=== PATIENT | female | born 1985 | race Caucasian/White ===

== ENCOUNTER 2019-09-21 10:52 | Emergency (ER) | payer BC ==
[~2019-09-21] VITALS: Ht 165.1 cm; Wt 96.2 kg
[2019-09-21] MEDS ORDERED: BIRTH CONTROL (11:03)
[2019-09-21] MEDS ORDERED: KEFLEX500 M1 PO (12:32)
[2019-09-21 12:56] VITALS: BP 150/99
== END 2019-09-21 12:57 | disposition home or self-care (01) ==
LOC: M.ERS 10:52
DX: S61.212A Laceration without foreign body of right middle finger without damage to nail, initial encounter (principal); Z90.49 Acquired absence of other specified parts of digestive tract; W26.8XXA Contact with other sharp object(s), not elsewhere classified, initial encounter; Y93.89 Activity, other specified; Y92.89 Other specified places as the place of occurrence of the external cause; Y99.8 Other external cause status